=== PATIENT | female | born 1940 | race Caucasian/White ===

== ENCOUNTER → 2022-06-26 | Outpatient (CLI) | payer MEDICARE, MEDICAID ==
[2022-06-26 09:57] LABS: HEMATOCRIT 36.5 % (36.0-47.0); MEAN CORPUSCULAR HEMOGLOBIN 23.6 pg (27.0-33.0); MEAN CORPUSCULAR HGB CONC 30.1 g/dl (32.0-36.5); MEAN CORPUSCULAR VOLUME 78.3 fl (80.0-96.0); PLATELET COUNT, AUTOMATED 328 10^3/uL (150-450); RED BLOOD COUNT 4.66 10^6/uL (4.00-5.40); WHITE BLOOD COUNT 15.3 10^3/uL (4.0-10.0)
[2022-06-26 09:59] LABS: ERYTHROCYTE SEDIMENTATION RATE 43 mm/hr (0-30)
[2022-06-26 10:23] LABS: ALBUMIN 3.5 G/DL (3.2-5.2); ALKALINE PHOSPHATASE 138 U/L (46-116); ALT/SGPT 15 U/L (7.0-40); AST/SGOT 20 U/L (<34); BILIRUBIN,TOTAL 0.7 MG/DL (0.3-1.2); BLOOD UREA NITROGEN 7 MG/DL (9-23); CALCIUM LEVEL 8.9 MG/DL (8.3-10.6); CARBON DIOXIDE LEVEL 26 MMOL/L (20-31); CHLORIDE LEVEL 101 MMOL/L (98-107); CREATININE FOR GFR 0.84 MG/DL (0.55-1.30); GLOMERULAR FILTRATION RATE > 60.0 (>32); GLUCOSE, FASTING 95 MG/DL (74-106); POTASSIUM SERUM 3.9 MMOL/L (3.5-5.1); SODIUM LEVEL 138 MMOL/L (136-145); TOTAL PROTEIN 6.7 G/DL (5.7-8.2)
[2022-07-10 18:09] LABS: ANCA-ATYPICAL <1:20 titer (Neg:<1:20); ANGIOTENSIN 1 CONVERTING ENZYM 42 U/L (14-82); ANTI DS-DNA AB Negative (Negative); ANTINUCLEAR ANTIBODIES DIRECT Negative (Negative); ASPERGILLUS FUMIGATUS AB Negative (Negative); AUREOBASIDIUM PULLULANS Negative (Negative); CYCLIC CITRULLINATED PEPTIDE 3 units (0-19); CYTOPLASMIC NEUTROP AB ANCA-C <1:20 titer (Neg:<1:20); MICROPOLYSPORA FAENI AB Negative (Negative); PERINUCLEAR AB ANCA-P <1:20 titer (Neg:<1:20); PIGEON SERUM AB Negative (Negative); RNP ANTIBODIES <0.2 AI (0.0-0.9); SJOGREN'S ANTI SS-A <0.2 AI (0.0-0.9); SJOGREN'S ANTI SS-B <0.2 AI (0.0-0.9); SMITH ANTIBODIES <0.2 AI (0.0-0.9); THERMOACTINOMYCES SACCHARI Negative (Negative); THERMOACTINOMYCES VULGARIS Negative (Negative)
== END ==
LOC: M CARPUL 08:23
PROVIDERS: ATTEND Internal Medicine Pulmonary Disease
DX: J44.9 Chronic obstructive pulmonary disease, unspecified (principal); J84.9 Interstitial pulmonary disease, unspecified; J96.11 Chronic respiratory failure with hypoxia; I31.39 Other pericardial effusion (noninflammatory); I08.2 Rheumatic disorders of both aortic and tricuspid valves

== ENCOUNTER → 2022-07-01 | Outpatient (CLI) | payer MEDICARE, MEDICAID | LOC: M PLAIMG 09:35 | PROVIDERS: ATTEND Internal Medicine Pulmonary Disease | DX: J84.9 Interstitial pulmonary disease, unspecified (principal); I31.39 Other pericardial effusion (noninflammatory); I51.7 Cardiomegaly; I70.0 Atherosclerosis of aorta; I25.10 Atherosclerotic heart disease of native coronary artery without angina pectoris; K44.9 Diaphragmatic hernia without obstruction or gangrene; M48.14 Ankylosing hyperostosis [Forestier], thoracic region; J47.9 Bronchiectasis, uncomplicated; K22.89 Other specified disease of esophagus ==

== ENCOUNTER → 2022-07-29 | Outpatient (REF) | payer MEDICARE, MEDICAID | LOC: M LAB REF 17:17 | PROVIDERS: ATTEND Internal Medicine Pulmonary Disease | DX: J44.9 Chronic obstructive pulmonary disease, unspecified (principal) ==

== ENCOUNTER 2023-08-07 18:26 | Inpatient (IN) | payer MEDICARE, MEDICAID ==
[~2023-08-07] VITALS: Ht 149.9 cm; Wt 58.1 kg
[2023-08-08] VITALS (20 sets, daily range): BP systolic 130–150; BP diastolic 64–69; TEMP 97.1–97.8; O2SAT 91–99
[2023-08-08] MEDS ORDERED: ACETAMINOPHEN TAB 650MG DOSE (2X325MG) PO PRN (03:40)
[2023-08-08] MEDS ORDERED: ALBUTEROL SULFATE 2.5MG/0.5ML INH NEB SOLN NEB PRN (03:40)
[2023-08-08] MEDS ORDERED: DEXTROSE 50% 50ML SYRINGE IV PRN (04:05)
[2023-08-08] MEDS ORDERED: GLUCAGON INJ 1MG VIAL SC PRN (04:05)
[2023-08-08] MEDS ORDERED: GLUCOSE 4GM CHEW TABLET PO PRN (04:05)
[2023-08-08 05:10] LABS: ABG BASE EXCESS 5.7 (-2.0-2.0); ABG HCO3 29.8 MMOL/L (22.0-26.0); ABG O2 SATURATION 97.9 % (95.0-99.0); ABG PARTIAL PRESSURE CO2 41.5 mmHg (35.0-45.0); ABG PARTIAL PRESSURE O2 106.5 mmHg (75.0-100.0); ABG STANDARD HCO3 29.6 MMOL/L. (22.0-26.0); ABG TOTAL CO2 31.1 MMOL/L (23.0-31.0); ABG pH (ARTERIAL) 7.474 UNITS (7.350-7.450)
[2023-08-08] MEDS ORDERED: FAMO40TA3 PO (05:13)
[2023-08-08] MEDS ORDERED: VALS1TAB67 PO (05:13)
[2023-08-08] MEDS ORDERED: OFEV1CAP2 PO (05:13)
[2023-08-08] MEDS ORDERED: BUDE0.254 NEB (05:13)
[2023-08-08] MEDS ORDERED: IPRA0.00 NEB (05:13)
[2023-08-08] MEDS ORDERED: AMLO1TAB25 PO (05:13)
[2023-08-08] MEDS ORDERED: SPIR-10 PO (05:13)
[2023-08-08] MEDS ORDERED: OMEP-173 PO (05:13)
[2023-08-08] MEDS ORDERED: BUDE10.7 IH (05:13)
[2023-08-08] MEDS ORDERED: FURO20TA2 PO (05:13)
[2023-08-08] MEDS ORDERED: METO1TAB32 PO (05:13)
[2023-08-08] MEDS ORDERED: HYDR-161 PO (05:13)
[2023-08-08] MEDS ORDERED: VENTAER INH (05:13)
[2023-08-08] MEDS ORDERED: HOME MED LIST COMPLETE! XX SCH (05:20)
[2023-08-08 06:31] LABS: HEMATOCRIT 31.7 % (36.0-47.0); HEMOGLOBIN 9.8 g/dl (12.0-15.5); MEAN CORPUSCULAR HEMOGLOBIN 23.4 pg (27.0-33.0); MEAN CORPUSCULAR HGB CONC 30.9 g/dl (32.0-36.5); MEAN CORPUSCULAR VOLUME 75.7 fl (80.0-96.0); PLATELET COUNT, AUTOMATED 228 10^3/uL (150-450); RED BLOOD COUNT 4.19 10^6/uL (4.00-5.40); WHITE BLOOD COUNT 13.2 10^3/uL (4.0-10.0)
[2023-08-08 06:41] LABS: HEMOGLOBIN A1c 5.6 % (4.0-6.0)
[2023-08-08 06:49] LABS: INR 1.17; PARTIAL THROMBOPLASTIN TIME 24.4 SECONDS (24.8-34.2); PROTHROMBIN TIME 14.6 SECONDS (12.5-14.5)
[2023-08-08 07:00] LABS: ALBUMIN 2.6 G/DL (3.2-5.2); ALKALINE PHOSPHATASE 55 U/L (46-116); ALT/SGPT 14 U/L (7.0-40); AST/SGOT 11 U/L (<34); BILIRUBIN,TOTAL 0.4 MG/DL (0.3-1.2); BLOOD UREA NITROGEN 33 MG/DL (9-23); CALCIUM LEVEL 8.2 MG/DL (8.3-10.6); CARBON DIOXIDE LEVEL 32 MMOL/L (20-31); CHLORIDE LEVEL 99 MMOL/L (98-107); CREATININE FOR GFR 0.81 MG/DL (0.55-1.30); GLOMERULAR FILTRATION RATE > 60.0 (>32); GLUCOSE, FASTING 154 MG/DL (74-106); POTASSIUM SERUM 4.5 MMOL/L (3.5-5.1); SODIUM LEVEL 135 MMOL/L (136-145)
[2023-08-08 07:03] LABS: THYROID STIMULATING HORMONE 2.522 uIU/ML (0.55-4.78); THYROXINE (T4) 4.5 UG/DL (4.5-10.9)
[2023-08-08 07:07] LABS: PROCALCITONIN 0.09 ng/ml
[2023-08-08] MEDS: INSULIN LISPRO (NovoLOG) PER UNIT SC SCH ×2 (07:40→20:33)
[2023-08-08] MEDS: SYMBICORT 160/4.5MCG INHALER 6GM INH SCH (08:06)
[2023-08-08] MEDS: IPRATROPIUM 0.5MG/ALBUTEROL 2.5MG INH SOL UD 3ML (DUONEB) NEB SCH (08:06)
[2023-08-08] MEDS: ENOXAPARIN 30MG/0.3ML SYRINGE (J1650 PER 10MG) SC SCH (08:35)
[2023-08-08] MEDS: predniSONE 20 MG TAB PO SCH (08:35)
[2023-08-08] MEDS: PANTOPRAZOLE 40MG TAB (PROTONIX) PO SCH (08:36)
[2023-08-08] MEDS: DOCUSATE SODIUM 100MG CAPSULE PO SCH (08:36)
[2023-08-08] MEDS: LACTATED RINGER'S 1000 ML IV ONE (13:50)
[2023-08-08] MEDS: LR 1,000 ML IV SCH (15:01)
[2023-08-08 16:45] LABS: FREE THYROXINE INDEX 2.4 % (1.3-4.8)
[2023-08-09] VITALS (25 sets, daily range): BP systolic 117–168; BP diastolic 58–80; TEMP 96.9–98.2; O2SAT 89–100
[2023-08-09 05:33] LABS: HEMATOCRIT 32.1 % (36.0-47.0); HEMOGLOBIN 9.5 g/dl (12.0-15.5); MEAN CORPUSCULAR HEMOGLOBIN 22.9 pg (27.0-33.0); MEAN CORPUSCULAR HGB CONC 29.6 g/dl (32.0-36.5); MEAN CORPUSCULAR VOLUME 77.5 fl (80.0-96.0); PLATELET COUNT, AUTOMATED 217 10^3/uL (150-450); RED BLOOD COUNT 4.14 10^6/uL (4.00-5.40); WHITE BLOOD COUNT 14.1 10^3/uL (4.0-10.0)
[2023-08-09 06:05] LABS: ALBUMIN 2.3 G/DL (3.2-5.2); ALKALINE PHOSPHATASE 50 U/L (46-116); ALT/SGPT 13 U/L (7.0-40); AST/SGOT 10 U/L (<34); BILIRUBIN,TOTAL 0.4 MG/DL (0.3-1.2); BLOOD UREA NITROGEN 28 MG/DL (9-23); CALCIUM LEVEL 7.8 MG/DL (8.3-10.6); CARBON DIOXIDE LEVEL 31 MMOL/L (20-31); CHLORIDE LEVEL 102 MMOL/L (98-107); CREATININE FOR GFR 0.68 MG/DL (0.55-1.30); GLOMERULAR FILTRATION RATE > 60.0 (>32); GLUCOSE, FASTING 81 MG/DL (74-106); POTASSIUM SERUM 4.3 MMOL/L (3.5-5.1); SODIUM LEVEL 136 MMOL/L (136-145); TOTAL PROTEIN 4.4 G/DL (5.7-8.2)
[2023-08-09] MEDS: LevoFLOXacin IV 750 MG in IV 1 EA IV SCH (16:37)
[2023-08-10] VITALS (33 sets, daily range): BP systolic 144–154; BP diastolic 65–78; TEMP 97–98.4; O2SAT 88–99
[2023-08-10] MEDS: FLUZONE HIGH DOSE(65YR UP)QUAD/PF 240MCG/0.7ML SYRINGE IM.IMMUN ONE (08:19)
[2023-08-11] VITALS (26 sets, daily range): BP systolic 137–156; BP diastolic 65–69; TEMP 97.4–98.7; O2SAT 87–98
[2023-08-11 05:13] LABS: HEMATOCRIT 28.7 % (36.0-47.0); HEMOGLOBIN 8.7 g/dl (12.0-15.5); MEAN CORPUSCULAR HGB CONC 30.3 g/dl (32.0-36.5); MEAN CORPUSCULAR VOLUME 75.9 fl (80.0-96.0); PLATELET COUNT, AUTOMATED 205 10^3/uL (150-450); RED BLOOD COUNT 3.78 10^6/uL (4.00-5.40); WHITE BLOOD COUNT 13.4 10^3/uL (4.0-10.0)
[2023-08-11] MEDS: LevoFLOXacin 750 MG TABLET PO SCH (05:35)
[2023-08-12] VITALS (18 sets, daily range): BP systolic 140–148; BP diastolic 64–80; TEMP 97–97.8; O2SAT 93–99
[2023-08-12 06:33] LABS: BASO % 0.1 % (0.0-1.0); EOS # 0.3 10^3/uL (0.0-0.5); EOS % 2.4 % (0.0-3.0); HEMATOCRIT 29.8 % (36.0-47.0); HEMOGLOBIN 8.9 g/dl (12.0-15.5); LYMPH % 15.5 % (24.0-44.0); MEAN CORPUSCULAR HEMOGLOBIN 23.1 pg (27.0-33.0); MEAN CORPUSCULAR HGB CONC 29.9 g/dl (32.0-36.5); MEAN CORPUSCULAR VOLUME 77.2 fl (80.0-96.0); MONO # 1.4 10^3/uL (0.0-0.8); MONO % 10.9 % (2.0-8.0); NEUTROPHILS # 8.9 10^3/uL (1.5-8.5); NEUTROPHILS % 69.8 % (36.0-66.0); PLATELET COUNT, AUTOMATED 186 10^3/uL (150-450); RED BLOOD COUNT 3.86 10^6/uL (4.00-5.40); WHITE BLOOD COUNT 12.8 10^3/uL (4.0-10.0)
[2023-08-12 07:11] LABS: ALBUMIN 2.3 G/DL (3.2-5.2); ALKALINE PHOSPHATASE 52 U/L (46-116); ALT/SGPT 12 U/L (7.0-40); AST/SGOT 14 U/L (<34); BILIRUBIN,TOTAL 0.4 MG/DL (0.3-1.2); BLOOD UREA NITROGEN 12 MG/DL (9-23); CALCIUM LEVEL 7.8 MG/DL (8.3-10.6); CARBON DIOXIDE LEVEL 33 MMOL/L (20-31); CHLORIDE LEVEL 101 MMOL/L (98-107); CREATININE FOR GFR 0.65 MG/DL (0.55-1.30); GLOMERULAR FILTRATION RATE > 60.0 (>32); GLUCOSE, FASTING 75 MG/DL (74-106); POTASSIUM SERUM 3.5 MMOL/L (3.5-5.1); SODIUM LEVEL 137 MMOL/L (136-145); TOTAL PROTEIN 4.4 G/DL (5.7-8.2)
[2023-08-12] MEDS: amLODIPine 5 MG TAB PO ONE (13:24)
== END 2023-08-12 16:37 | disposition home or self-care (01) | DRG 191 ==
LOC: M PCU 08-08 03:24
PROVIDERS: ADMIT Family Medicine; ATTEND Family Medicine
DX: J44.1 Chronic obstructive pulmonary disease with (acute) exacerbation (principal); J96.11 Chronic respiratory failure with hypoxia; Z66 Do not resuscitate; R91.8 Other nonspecific abnormal finding of lung field; Z99.81 Dependence on supplemental oxygen; Z85.3 Personal history of malignant neoplasm of breast; I10 Essential (primary) hypertension; I27.20 Pulmonary hypertension, unspecified; E11.9 Type 2 diabetes mellitus without complications; J84.10 Pulmonary fibrosis, unspecified; I36.1 Nonrheumatic tricuspid (valve) insufficiency; Z90.49 Acquired absence of other specified parts of digestive tract; Z90.79 Acquired absence of other genital organ(s); Z98.41 Cataract extraction status, right eye; Z98.42 Cataract extraction status, left eye; Z87.891 Personal history of nicotine dependence; Z79.899 Other long term (current) drug therapy; Z88.0 Allergy status to penicillin